=== PATIENT | male | born 1975 | race Two or more races ===

== ENCOUNTER 2017-03-31 12:01 | Emergency (ER) | payer OTHER ==
[~2017-03-31] VITALS: Ht 175.3 cm; Wt 122.5 kg
[2017-03-31 12:51] LABS: Basophils # (auto) 0 uL; Basophils % (auto) 0.4 % (0.0-2.0); CONDITION Y; Eosinophils # (auto) 0.1 uL; Eosinophils % (auto) 0.7 % (0.0-7.0); Hematocrit 42.8 % (41.0-53.0); Hemoglobin 14.6 g/dL (13.5-17.5); Lymphocytes # (auto) 2.4 uL; Lymphocytes % (auto) 20.9 % (10.0-50.0); Mean Corpuscular Hemoglobin 29.9 pg (28.0-32.0); Mean Corpuscular Hgb Conc. 34.1 g/dL (32.0-36.0); Mean Corpuscular Volume 87.5 fL (80.0-100.0); Mean Platelet Volume 9.4 fL (6.9-10.8); Monocytes # (auto) 0.5 uL; Monocytes % (auto) 4.4 % (0.0-12.0); Neutrophils # (auto) 8.5 uL; Neutrophils % (auto) 73.6 % (37.0-80.0); Platelet Count (auto) 280 10^3/uL (140-450); White Blood Cell 11.6 10^3/uL (4.4-10.8)
[2017-03-31 13:34] LABS: Albumin 3.5 g/dL (3.4-5.0); Bilirubin, Total 0.3 mg/dL (0.2-1.0); Calcium 9.1 mg/dL (8.5-10.1); Potassium 4.2 mmol/L (3.5-5.1); Total Protein 8.1 g/dL (6.4-8.2)
[2017-03-31 14:05] LABS: Urine RBC None Seen /hpf (0 - 3)
[2017-03-31] MEDS ORDERED: SODIUM CHLORIDE 0.9% 1,000 ML IV ONE (14:45)
[2017-03-31 16:11] LABS: Urine Bilirubin Negative (Negative); Urine Blood Negative /uL (Negative); Urine Color Yellow (Yellow); Urine Glucose 2+ mg/dL (Normal); Urine Ketone TRACE (Negative); Urine Mucus FEW (None Seen); Urine Nitrite Negative (Negative); Urine Squamous Epithelial Cell FEW /hpf (<5); Urine Urobilinogen Normal (Negative)
[2017-03-31 17:49] VITALS: BP 114/69
== END 2017-03-31 18:46 | disposition home or self-care (01) ==
LOC: ER 12:01
DX: E11.65 Type 2 diabetes mellitus with hyperglycemia (principal); G47.30 Sleep apnea, unspecified; Z87.891 Personal history of nicotine dependence
CPT/HCPCS: 36415; 80053; 81001; 85025; 94761; 96360; 96361; 99285; J7030

== ENCOUNTER 2025-07-10 09:31 | Inpatient (IN) | payer BC, OTHER ==
[~2025-07-10] VITALS: Ht 175.3 cm; Wt 150.4 kg
--- NOTE | 2025-07-10 10:05 | ED.PDOC ---
History of Present Illness(SKN HPI Comments 50 y/o M, BIBA, with PMHx of DM presents to the ED for CC of wound check. EMS reports, patient is coming from home where he c/o pain to his right suprapubic area d/t a wound. Patient relays, he was exiting his vehicle x5days ago when he suffered a "tear" to his right suprapubic area that has now become swollen and erythematous. Patient has a notable 3cm subcutaneous wound to his right suprapubic area. Patient denies fever, chills, or sweats. Time Seen by MD: 09:50 Primary Care Provider: DR OMALLEY History of Present Illness: Nurses Notes, Clinical Engineer Notes, Medications, Allergies Allergies: Coded Allergies: NO KNOWN ALLERGIES (Unverified , 03/31/17) Information Source: Patient, Emergency Med Personnel Mode of Arrival: EMS Severity: Moderate Timing: Days Duration: Since onset Prehospital treatment: None Location: Abdomen Mechanism: Spontaneous Onset Retained Foreign Body: No Wound Type: Abscess History of: None Associated Signs and Symptoms: Redness, Swelling, Pus Past Medical History PAST MEDICAL HISTORY: DM Surgical History: Denies all surgeries Social History Smoker: Non-Smoker, Quit Less Than 1 Year Alcohol: Occasionally Drugs: Denies Drug Use Lives In: Home Constitutional: denies: chills, diaphoresis, fatigue, fever, malaise, sweats, weakness, others EENTM: denies: blurred vision, double vision, ear bleeding, ear discharge, ear drainage, ear pain, ear ringing, eye pain, eye redness, hearing loss, mouth pain, mouth swelling, nasal discharge, nose bleeding, nose congestion, nose pain, photophobia, tearing, throat pain, throat swelling, voice changes, others Respiratory: denies: cough, hemoptysis, orthopnea, SOB at rest, shortness of breath, SOB with excertion, stridor, wheezing, others Cardiovascular: denies: chest pain, dizzy spells, diaphoresis, Dyspnea on exertion, edema, irregular heart beat, left arm pain, lightheadedness, palpitations, PND, syncope, others Gastrointestinal: denies: abdomen distended, abdominal pain, blood streaked bowels, constipated, diarrhea, dysphagia, difficulty swallowing, hematemesis, melena, nausea, poor appetite, poor fluid intake, rectal bleeding, rectal pain, vomiting, others Genitourinary: denies: burning, dysuria, flank pain, frequency, hematuria, incontinence, penile discharge, penile sore, pain, testicle pain, testicle swelling, urgency, others Neurological: denies: dizziness, fainting, headache, left sided numbness, left sided weakness, numbness, paresthesia, pre-existing deficit, right sided numbness, right sided weakness, seizure, speech problems, tingling, tremors, weakness, others Musculoskeletal: denies: back pain, gout, joint pain, joint swelling, muscle pain, muscle stiffness, neck pain, others Integumetry: reports: wounds; denies: bruises, change in color, change in hair/nails, dryness, laceration, lesions, lumps, rash, others Allergic/Immunocompromised: denies: Difficulty Healing, Frequent Infections, Hives, Itching, others Hematologic/Lymphatic: denies: anemia, blood clots, easy bleeding, easy bruising, swollen glands, others Endocrine: denies: excessive hunger, excessive sweating, excessive thirst, excessive urination, flushing, intolerance to cold, intolerance to heat, unexplained weight gain, unexplained weight loss, others Psychiatric: denies: anxiety, bipolar disorder, depression, hopeless, panic disorder, schizophrenia, sleepless, suicidal, others All Other Systems: Reviewed and Negative Physical Exam General Appearance: Moderate Distress, Obese HEENT: Normal ENT Inspection, Pharynx Normal, TMs Normal Neck: Full Range of Motion, Non-Tender, Normal, Normal Inspection Respiratory: Chest Non-Tender, Lungs Clear, No Accessory Muscle Use, No Respiratory Distress, Normal Breath Sounds Cardiovascular: No Edema, No JVD, No Murmur, No Gallop, Normal Peripheral Pulses, Regular Rate/Rhythm Breast Exam: Deferred Gastrointestinal: No Organomegaly, Non Tender, No Pulsatile Mass, Normal Bowel Sounds, Soft Genitalia: Deferred Pelvic: Deferred Rectal: Deferred Extremities: No calf tenderness, Normal capillary refill, Normal inspection, Normal range of motion, Non-tender, No pedal edema Musculoskeletal : Apperance: Normal Neurologic: Alert, manufacturing design engineer II-XII nml as Tested, No Motor Deficits, Normal Affect, Normal Mood, No Sensory Deficits Cerebellar Function: Normal Reflexes: Normal Skin: Wounds (Right lower quadrant) Peripheral Pulses: 3+ Radial (R), 3+ Radial (L) Lymphatic: No Adenopathy Was a procedure done? Was a procedure done?: No Differential Diagnosis (INTG) Differential Diagnosis: Cellulitis Differential Diagnosis: Abscess, Cellulitis X-Ray, Labs, Meds, VS Vital Signs Date Time Temp Pulse Resp B/P (MAP) Pulse Ox O2 Delivery O2 Flow Rate FiO2 07/10/25 10:56 97.6 111 18 109/66 (80) 97.6 07/10/25 10:14 98.7 104 15 132/91 98 98.7 Lab Test 07/10/25 10:09 Range/Units White Blood Count 7.8 4.4-10.8 10^3/uL Red Blood Count 4.86 4.5-5.90 10^6/uL Hemoglobin 14.4 13.5-17.5 g/dL Hematocrit 41.7 41.0-53.0 % Mean Corpuscular Volume 85.9 80.0-100.0 fL Mean Corpuscular Hemoglobin 29.6 28.0-32.0 pg Mean Corpuscular Hemoglobin Concent 34.5 32.0-36.0 g/dL Red Cell Distribution Width 14.4 H 11.8-14.3 % Platelet Count 270 140-450 10^3/uL Mean Platelet Volume 9.7 6.9-10.8 fL Neutrophils (%) (Auto) 75.1 37.0-80.0 % Lymphocytes (%) (Auto) 16.6 10.0-50.0 % Monocytes (%) (Auto) 7.3 0.0-12.0 % Eosinophils (%) (Auto) 0.5 0.0-7.0 % Basophils (%) (Auto) 0.5 0.0-2.0 % Neutrophils # (Auto) 5.9 1.6-8.6 10 ^3/uL Lymphocytes # (Auto) 1.3 0.4-5.4 10 ^3/uL Monocytes # (Auto) 0.6 0-1.3 10 ^3/uL Eosinophils # (Auto) 0 0-0.8 10 ^3/uL Basophils # (Auto) 0 0-0.2 10 ^3/uL Nucleated Red Blood Cells 0.1 % Sodium Level 130 L 136-145 mmol/L Potassium Level 4.0 3.5-5.1 mmol/L Chloride Level 98 98-107 mmol/L Carbon Dioxide Level 23 20-31 mmol/L Anion Gap 9 5-15 Blood Urea Nitrogen 7 L 9-23 mg/dL Creatinine 0.87 0.700-1.30 mg/dL Glomerular Filtration Rate Calc 105 >90 mL/min BUN/Creatinine Ratio 8.0 L 10.0-20.0 Serum Glucose 302 H 74-106 mg/dL Lactic Acid Level 1.9 0.4-2.0 mmol/L Calcium Level 8.7 8.7-10.4 mg/dL Current Medications Medications (Trade) Dose Ordered Sig/Binu Route Start Time Stop Time Status Last Admin Sodium Chloride 1,000 ml @ 1,000 mls/hr Q1H ONCE IV 07/10/25 10:00 07/10/25 10:59 DC 07/10/25 11:22 Piperacillin Sod/ Tazobactam Sod 100 ml @ 100 mls/hr ONCE ONCE IV 07/10/25 10:00 07/10/25 10:59 DC 07/10/25 11:47 Clindamycin Phosphate 50 ml @ 50 mls/hr ONCE ONCE IV 07/10/25 10:00 07/10/25 10:59 DC 07/10/25 11:22 [place] [id number] Ph: [phone] DIAGNOSTIC IMAGING Diagnostic Imaging Report : [id number] Signed PATIENT: LISSETH TURNER ACCT: [id number] UNIT: [id number] : 1975 LOC: ER ROOM / BED: / AGE / SEX: 50 / M ADM STATUS: REG ER SERVICE 0958 ORDERING PHYSICIAN: ROSALES GOODMAN MD PROCEDURE(s): CXRP - CHEST PORTABLE REASON: sob ORDER NUMBER(s): [id number], ACCESSION NUMBER(s): [id number] CLINICAL HISTORY: sob TECHNIQUE: Single view of the chest was obtained. COMPARISON: None FINDINGS: The heart size and pulmonary vasculature are normal. The lungs are clear. IMPRESSION: NO ACUTE CARDIOPULMONARY PROCESS. ATED BY: MILAGRO CEBALLOS MD DICTATED DATE/TIME: 07/10/25 1044 SIGNED BY: MILAGRO CEBALLOS MD SIGNED DATE/TIME: 07/10/25 1044 CC: Patient alert. Does have a wound in the right lower quadrant. Being pannus. Vitals stable. Answering questions. Chest x-ray reviewed does not show any acute changes. Does have redness along with swelling. Started antibiotics. Explained to the patient. Was told to follow up with his primary care physician. Was told to come back if there is any problem. Time of 1ST Reevaluation: 10:20 Reevaluation 1ST: Unchanged Patient Education/Counseling: Diagnosis, Treatment Family Education/Counseling: No Family Present SEPSIS Sepsis Screen Physician Orders Chest Portable (07/10/25 09:58) Urinalysis (07/10/25 09:58) Sodium Chloride 0.9% (07/10/25 10:00) Blood Culture (07/10/25 09:58) Vital Signs Date Time Temp Pulse Resp B/P (MAP) Pulse Ox O2 Delivery O2 Flow Rate FiO2 07/10/25 10:56 97.6 111 18 109/66 (80) 97.6 07/10/25 10:14 98.7 104 15 132/91 98 98.7 Laboratory Tests Test 07/10/25 10:09 Lactic Acid Level 1.9 mmol/L (0.4-2.0) White Blood Count 7.8 10^3/uL (4.4-10.8) Medications Medications Dose Ordered Sig/Binu Route Start Time Stop Time Status Last Admin Dose Admin Clindamycin Phosphate 50 ml @ 50 mls/hr ONCE ONCE IV 07/10/25 10:00 07/10/25 10:59 DC 07/10/25 11:22 Piperacillin Sod/ Tazobactam Sod 100 ml @ 100 mls/hr ONCE ONCE IV 07/10/25 10:00 07/10/25 10:59 DC 07/10/25 11:47 Sodium Chloride 1,000 ml @ 1,000 mls/hr Q1H ONCE IV 07/10/25 10:00 07/10/25 10:59 DC 07/10/25 11:22 Departure 1 Departure Time of Disposition: 12:44 Impression: Primary Impression: Cellulitis Qualified Codes: L03.90 - Cellulitis, unspecified Disposition: 09 ADMITTED INPATIENT Admit to: Med Surg Condition: Guarded Critical Care Note Critical Care Time?: No Stability Stability form required: No Heart Score Heart Score: Heart Score Response (Comments) Value History N/A 0 EKG N/A 0 Age N/A 0 Risk Factors N/A 0 Troponin N/A 0 Total 0 I personally scribed for ROSALES GOODMAN MD ([email or web address]) on 07/10/25 at 10:05. Electronically submitted by Damaris Cronin [email or web address]). I personally scribed for ROSALES GOODMAN MD ([email or web address]) on 07/10/25 at 12:12. Electronically submitted by Damaris Cronin [email or web address]). ROSALES GOODMAN MD Jul 10, 2025 10:05
[2025-07-10 10:32] LABS: Hematocrit 41.7 % (41.0-53.0); Hemoglobin 14.4 g/dL (13.5-17.5); Mean Corpuscular Hemoglobin 29.6 pg (28.0-32.0); Mean Corpuscular Volume 85.9 fL (80.0-100.0); Nucleated Red Blood Cells % 0.1 %
[2025-07-10 10:42] LABS: Chloride 98 mmol/L (98-107); Potassium 4.0 mmol/L (3.5-5.1)
[2025-07-10 10:43] LABS: Anion Gap 9 (5-15); Calcium 8.7 mg/dL (8.7-10.4); Carbon Dioxide 23 mmol/L (20-31)
[2025-07-10 10:47] LABS: Sodium 130 mmol/L (136-145)
--- NOTE | 2025-07-10 10:47 | DVH ---
CLINICAL HISTORY: sob TECHNIQUE: Single view of the chest was obtained. COMPARISON: None FINDINGS: The heart size and pulmonary vasculature are normal. The lungs are clear. IMPRESSION: NO ACUTE CARDIOPULMONARY PROCESS.
[2025-07-10 10:48] LABS: BUN/Creatinine Ratio 8.0 (10.0-20.0); Blood Urea Nitrogen 7 mg/dL (9-23); Glucose 302 mg/dL (74-106)
[2025-07-10] MEDS: SODIUM CHLORIDE 0.9% 1,000 ML IV ONE ×2 (11:22→11:50)
[2025-07-10] MEDS: CLINDAMYCIN 900MG IV 50 ML IV ONE (11:22)
[2025-07-10] MEDS: PIPERACILLIN-TAZOB 3.375GM 100 ML IV ONE (11:47)
[2025-07-10] MEDS ORDERED: LISI20TA56 PO (13:11)
[2025-07-10] MEDS ORDERED: HYDROcodone-ACET 5/325MG TAB PO PRN (13:15)
[2025-07-10] MEDS ORDERED: DEXTROSE (50%) 50ML SYRG IV PRN (13:15)
[2025-07-10] MEDS ORDERED: ACETAMINOPHEN 325 MG TAB PO PRN (13:15)
[2025-07-10] MEDS ORDERED: ONDANSETRON HCL 4 MG/2 ML VIAL IV PRN (13:15)
[2025-07-10] MEDS ORDERED: MORPHINE SULFATE 4 MG/ML SYR/VIAL IV PRN (13:45)
--- NOTE | 2025-07-10 13:53 | DVHHP2 ---
History of Present Illness Reason for Visit: Wound check History of Present Illness A 50 year old male with past medical history of type 2 diabetes, hypertension, morbid obesity, ex-smoker presents to the ED for wound check. Reports an open wound on right lower quadrant abdomen for five days after tearing skin while exiting vehicle. Since then we will wound has become swollen, erythematous with purulent drainage and foul odor. Denies fever or chills. Past Medical History As stated in HPI Past Surgical History Denies Family History Reviewed, non-contributory to the management of this case. Past Social History The patient lives at home, denies smoking, alcohol or illicit drugs abuse. Review of Systems Constitutional: Yes: Malaise; No: Fever, Chills, Sweats, Weakness, Other Eyes: No: Pain, Vision change, Conjunctivae inflammation, Eyelid inflammation, Other, Redness ENT: No: Ear pain, Ear discharge, Nose pain, Nose discharge, Nose congestion, Mouth pain, Mouth swelling, Throat pain, Throat swelling, Other Respiratory: No: Cough, Dry, Shortness of breath, SOB with excertion, Wheezing, Hemoptysis, Pleuritic Pain, Sputum, Wheezing, Other Cardiovascular: No: Chest Pain, Palpitations, Orthopnea, Paroxysmal Noc. Dyspnea, Edema, Lt Headedness, Other Gastrointestinal: No: Nausea, Vomiting, Abdominal Pain, Diarrhea, Constipation, Melena, Hematochezia, Other Genitourinary: No Dysuria, No Frequency, No Incontinence, No Hematuria, No Retention, No Other Musculoskeletal: No: other, neck pain, shoulder pain, arm pain, back pain, hand pain, leg pain, foot pain Skin: Other (Open wound on right lower abdomen) Neurological: No: Weakness, Numbness, Incoordination, Change in speech, Confusion, Seizures, Other Allergies: Coded Allergies: NO KNOWN ALLERGIES (Unverified , 03/31/17) Exam Vital Signs Vital Signs Date Time Temp Pulse Resp B/P (MAP) Pulse Ox O2 Delivery O2 Flow Rate FiO2 07/10/25 13:10 97.6 102 17 112/66 (81) 97 97.6 General Appearance: Alert, Oriented X3, Cooperative, mild distress HEENT: Atraumatic, PERRLA, EOMI Respiratory: Clear to auscultation, Normal air movement Cardiovascular: Regular rate, Normal S1, Normal S2 Abdominal: Normal bowel sounds, Soft, Other (Right lower abdomen open wound approximately 3-4 cm with purulent drainage and foul odor) Neuro: Normal gait Psych/Mental Status: Mental status NL Labs/Xrays Labs Test 07/10/25 10:09 Range/Units White Blood Count 7.8 4.4-10.8 10^3/uL Red Blood Count 4.86 4.5-5.90 10^6/uL Hemoglobin 14.4 13.5-17.5 g/dL Hematocrit 41.7 41.0-53.0 % Mean Corpuscular Volume 85.9 80.0-100.0 fL Mean Corpuscular Hemoglobin 29.6 28.0-32.0 pg Mean Corpuscular Hemoglobin Concent 34.5 32.0-36.0 g/dL Red Cell Distribution Width 14.4 H 11.8-14.3 % Platelet Count 270 140-450 10^3/uL Mean Platelet Volume 9.7 6.9-10.8 fL Neutrophils (%) (Auto) 75.1 37.0-80.0 % Lymphocytes (%) (Auto) 16.6 10.0-50.0 % Monocytes (%) (Auto) 7.3 0.0-12.0 % Eosinophils (%) (Auto) 0.5 0.0-7.0 % Basophils (%) (Auto) 0.5 0.0-2.0 % Neutrophils # (Auto) 5.9 1.6-8.6 10 ^3/uL Lymphocytes # (Auto) 1.3 0.4-5.4 10 ^3/uL Monocytes # (Auto) 0.6 0-1.3 10 ^3/uL Eosinophils # (Auto) 0 0-0.8 10 ^3/uL Basophils # (Auto) 0 0-0.2 10 ^3/uL Nucleated Red Blood Cells 0.1 % Sodium Level 130 L 136-145 mmol/L Potassium Level 4.0 3.5-5.1 mmol/L Chloride Level 98 98-107 mmol/L Carbon Dioxide Level 23 20-31 mmol/L Anion Gap 9 5-15 Blood Urea Nitrogen 7 L 9-23 mg/dL Creatinine 0.87 0.700-1.30 mg/dL Glomerular Filtration Rate Calc 105 >90 mL/min BUN/Creatinine Ratio 8.0 L 10.0-20.0 Serum Glucose 302 H 74-106 mg/dL Lactic Acid Level 1.9 0.4-2.0 mmol/L Calcium Level 8.7 8.7-10.4 mg/dL SEPSIS Sepsis Screen Date sepsis recognized/suspect: Jul 10, 2025 Time Sepsis recognized/suspect: 941 Recent Procedure: No On Antibiotic Therapy: No Respiratory Rate >20: No Heart Rate >90: No Temp<36 C (96.8 F) or >38.3 C: No SBP <90 or MAP <65 mmHG: No New Acute Mental Status Change: No Is the patient on CPAP, BIPAP,: No Physician Orders Chest Portable (07/10/25 09:58) Urinalysis (07/10/25 09:58) Sodium Chloride 0.9% (07/10/25 10:00) Blood Culture (07/10/25 09:58) * Wound Consult (07/10/25 ) Clindamycin 300mg Iv (Cleocin Iv) (07/10/25 14:00) Piperacillin-Tazob 3.375gm (Zosyn 3.375g (07/10/25 18:00) Wound Culture W/ Gs (07/10/25 13:11) Glucose Blood (Accu-Chek Comfort Curve T (07/10/25 17:00) Insulin R (Human) (Insulin R) (07/10/25 17:00) Dextrose 50% Syringe (07/10/25 13:15) Lisinopril Tablet (Zestril Tablet) (07/11/25 10:00) Vital Signs Date Time Temp Pulse Resp B/P (MAP) Pulse Ox O2 Delivery O2 Flow Rate FiO2 07/10/25 13:10 97.6 102 17 112/66 (81) 97 97.6 07/10/25 10:56 97.6 111 18 109/66 (80) 97.6 07/10/25 10:14 98.7 104 15 132/91 98 98.7 Laboratory Tests Test 07/10/25 10:09 Lactic Acid Level 1.9 mmol/L (0.4-2.0) White Blood Count 7.8 10^3/uL (4.4-10.8) Medications Medications Dose Ordered Sig/Binu Route Start Time Stop Time Status Last Admin Dose Admin Clindamycin Phosphate 50 ml @ 50 mls/hr ONCE ONCE IV 07/10/25 10:00 07/10/25 10:59 DC 07/10/25 11:22 50 MLS/HR Piperacillin Sod/ Tazobactam Sod 100 ml @ 100 mls/hr ONCE ONCE IV 07/10/25 10:00 07/10/25 10:59 DC 07/10/25 11:47 100 MLS/HR Sodium Chloride 1,000 ml @ 1,000 mls/hr Q1H ONCE IV 07/10/25 10:00 07/10/25 10:59 DC 07/10/25 11:22 1,000 MLS/HR Assessment/Plan Assessment/Plan # Right lower abdominal cellulitis/abscess # infected open wound Admit to medical-surgical unit Empiric antibiotic with Zosyn and clindamycin Blood and wound culture Wound consult # diabetes type 2 Insulin sliding scale Check A1c # hypertension Continue with lisinopril Dash diet # morbid obesity with bmi 52 Lifestyle modification counseled with diet, regular exercise, and weight loss # ex-smoker DVT prophylaxis Medical plan discussed with patient Plan discussed with: Patient My Orders Orders - QUAN MEREDITHP Procedure Category Date Status Time * Wound Consult CONS 07/10/25 Transmitted Clindamycin 300mg Iv PHA 07/10/25 Logged (Cleocin Iv) 14:00 Piperacillin-Tazob PHA 07/10/25 Logged 3.375gm (Zosyn 3.375g 18:00 Wound Culture W/ Gs HUGO 07/10/25 Logged 13:11 Glucose Blood PHA 07/10/25 Logged (Accu-Chek Comfort 17:00 Insulin R (Human) PHA 07/10/25 Logged (Insulin R) 17:00 Dextrose 50% Syringe PHA 07/10/25 Logged 13:15 Lisinopril Tablet PHA 07/11/25 Logged (Zestril Tablet) 10:00 Date of Service: Jul 10, 2025 Billing Provider: QUAN MEREDITH Common Visit Codes: [id number] INP/OBS CARE (HIGH) QUAN MEREDITH Jul 10, 2025 13:53
[2025-07-10 15:09] VITALS: BP 117/68; PULSE 95; RESP 18; TEMP 97.9; O2SAT 100
[2025-07-10] MEDS ORDERED: METF-370 PO (16:00)
[2025-07-10] MEDS: ACCU-CHEK COMFORT CURVE STRIP VI SCH (17:07)
[2025-07-10] MEDS: InsuLIN REG 1unit/0.01ml Soln (100units/ml) SC SCH (17:07)
[2025-07-10] MEDS: PIPERACILLIN-TAZOB 3.375GM 100 ML IV SCH (17:46)
[2025-07-10 20:00] VITALS: PULSE 104; RESP 18; O2SAT 100
[2025-07-10 21:00] VITALS: BP 108/72; PULSE 104; RESP 18; TEMP 98.6; O2SAT 100
[2025-07-10] MEDS: CLINDAMYCIN 300MG IV 50 ML IV SCH (22:06)
[2025-07-10 23:51] LABS: Urine Budding Yeast MODERATE /hpf (None Seen); Urine Protein, UAD 1+ (Negative)
[2025-07-11] VITALS (8 sets, daily range): BP systolic 96–110; BP diastolic 60–76; PULSE 72–106; RESP 16–19; TEMP 97.6–99; O2SAT 95–100
[2025-07-11 05:52] LABS: Hematocrit 36.4 % (41.0-53.0); Hemoglobin 12.5 g/dL (13.5-17.5); Mean Corpuscular Hemoglobin 29.4 pg (28.0-32.0); Mean Corpuscular Volume 85.6 fL (80.0-100.0); Nucleated Red Blood Cells % 0.0 %
[2025-07-11 06:17] LABS: Albumin 3.2 g/dL (3.2-4.8); Alkaline Phosphatase 73 U/L (46-116); Anion Gap 9 (5-15); BUN/Creatinine Ratio 15.5 (10.0-20.0); Blood Urea Nitrogen 11 mg/dL (9-23); Carbon Dioxide 24 mmol/L (20-31); Chloride 99 mmol/L (98-107); Potassium 3.7 mmol/L (3.5-5.1); Total Protein 6.3 g/dL (5.7-8.2)
[2025-07-11 06:18] LABS: Alanine Aminotransferase 40 U/L (7-40); Bilirubin, Total 0.5 mg/dL (0.2-1.0); Calcium 8.0 mg/dL (8.7-10.4); Glucose 263 mg/dL (74-106); Sodium 132 mmol/L (136-145)
[2025-07-11] MEDS: ENOXAPARIN SOD 40 MG/0.4 ML SYRINGE SC SCH (09:17)
[2025-07-11] MEDS: LISINOPRIL 20 MG TAB PO SCH (09:21)
[2025-07-11] MEDS ORDERED: VANCOMYCIN PER PHARMACY 0 MG IV SCH (11:30)
[2025-07-11] MEDS: IOHEXOL 300 MG/ML 100ML BOTTLE IJ ONE (12:15)
[2025-07-11] MEDS: LACTATED RINGER'S 500 ML IV ONE (12:58)
[2025-07-11] MEDS: LACTATED RINGER'S 1,000 ML IV SCH (13:11)
[2025-07-11] MEDS: VANCOMYCIN 1GM/250ML KIT 250 ML IV SCH (13:15)
[2025-07-11] MEDS: INSULIN LANTUS (GLARGINE) 1 /0.01ml (100units/ml) SC ONE (13:27)
--- NOTE | 2025-07-11 14:06 | DVH ---
EXAM: CT CT AB PELVIS W WO CON-IV ONLY History: abdominal superficial collection vs underlying mass COMPARISON: None TECHNIQUE: Following IV administration of 100 mL omnipaque [address] of the abdomen and pelvis was performed from lung bases to pubic symphysis. Intravenous contrast was administered during this examination. Portal venous imaging was obtained. Axial, coronal and sagittal multiplanar reformats were performed by the technologist on a separate workstation. Radiation Dose : 1. Abdomen/Pelvis: CTDIvol 25.6mGy, DLP 3022.58 mGy*cm. FINDINGS: Lung Bases: No acute or significant lung base finding. Normal heart size. No pleural or pericardial effusion. Liver: The liver is normal in size. No focal lesions. Normal hepatic vascular enhancement. Gallbladder and Biliary Tree: Unremarkable Spleen: Unremarkable Pancreas: The pancreas is normal in appearance without focal lesions or abnormal enhancement. Adrenal Glands: Unremarkable Kidneys: No hydronephrosis. Bladder: Unremarkable Bowel: The stomach is grossly normal in appearance. Small bowel and colon are normal in caliber and distribution. The appendix is not visualized; however, no secondary findings of acute appendicitis identified. Ascites: Absent Lymphadenopathy: No mesenteric, retroperitoneal or periportal lymphadenopathy. Abdominal Wall and Mesentery: Slight swelling of the lower right lateral chest wall. Vasculature: The visualized abdominal aorta is normal in size and caliber. Abdominal and pelvic vessels demonstrate normal enhancement. Pelvic Organs: Unremarkable Musculoskeletal: No aggressive focal bony lesions, acute fractures or dislocation. IMPRESSION: 1. No acute abdominal or pelvic finding. Radiation optimization: All CT scans at this facility use at least one of these dose optimization techniques: automated exposure control mA and/or kV adjustment per patient size (includes targeted exams where dose is matched to clinical indication) or iterative reconstruction.
--- NOTE | 2025-07-11 15:10 | DVHPNRES ---
Progress Note Date Seen: Jul 11, 2025 Resident Creating Document: JEANNETTE GREGORIO RESIDENT Medical Necessity Reason Pt with a Central, PICC or Fol: No Subjective Review of Systems 07/11/2025: Patient was seen and examined by me at the bedside. Patient has no new complaints. He denies of any pain in the abdominal wound region. Objective vital signs Vital Sign Date Time Temp Pulse Resp B/P (MAP) Pulse Ox O2 Delivery O2 Flow Rate FiO2 07/11/25 13:00 98.5 106 19 106/62 (77) 99 98.5 07/11/25 08:00 Room Air* 0 21 Total Intake and Output 07/10/25 07/10/25 07/11/25 15:00 23:00 07:00 Intake Total 1150 ml 100 ml 500 ml Output Total 0 ml Balance 1150 ml 100 ml 500 ml medications Current Medications Medications Dose Ordered Sig/Binu Route Start Time Stop Time Status Last Admin Dose Admin Diagnostic Test (Pha) 1 strip ACHS 07/10/25 17:00 07/11/25 11:02 1 STRIP Insulin Human Regular ACHS SC 07/10/25 17:00 07/11/25 11:09 8 UNITS Dextrose 50 ml UD PRN IV 07/10/25 13:15 Acetaminophen/ Hydrocodone Bitart 1 tab Q4HP PRN PO 07/10/25 13:15 Ondansetron HCl 4 mg Q4HP PRN IV 07/10/25 13:15 Enoxaparin Sodium 40 mg DAILY SC 07/11/25 10:00 07/11/25 09:17 40 MG Acetaminophen 650 mg Q6HP PRN PO 07/10/25 13:15 Morphine Sulfate 2 mg Q4HPRN PRN IV 07/10/25 13:45 Cefepime HCl 50 ml @ 12.5 mls/hr Q8H IV 07/11/25 13:00 Vancomycin HCl 0 ml @ 0 mls/hr PER PHARMACY IV 07/11/25 11:30 Insulin Glargine 20 units HS SC 07/11/25 22:00 Lactated Ringer's 1,000 ml @ 100 mls/hr Q10H IV 07/11/25 11:45 07/11/25 13:11 100 MLS/HR Examination General Appearance: Alert, Oriented X3, Cooperative, Not in acute distress HEENT: Atraumatic, Mucous membranes moist/pink Respiratory: Clear to auscultation, Normal air movement, No added sounds Cardiovascular: Regular rate, Normal S1, Normal S2, No murmurs Abdominal: Active bowel sounds, Soft, 1 cm superficial skin wound, draining purulent pus /blood, foul-smelling, erythema of the surrounding skin, warm to touch Extremities: No edema, Normal pulses, No tenderness/swelling Skin: No Significant rash, except past surgical scars Neuro: Normal speech, sensorimotor deficits none Psych/Mental Status: Mental status NL, Mood NL Nurse was there as companion caregiver during examination laboratory and microbiology Laboratory Tests 07/11/25 05:08 Test 07/11/25 05:08 Range/Units Serum Glucose 263 H 74-106 mg/dL Microbiology Date/Time Source Procedure Growth Status 07/10/25 10:17 Blood Blood Culture - Preliminary NO GROWTH AFTER 24 HOURS OF INCUBATION. Resulted Labs and/or images reviewed: Labs reviewed by me, Image(s) reviewed by me Problem List/Assessment/Plan Problem List/Assessment/Plan Cabrera Martinez 50-year-old male with type 2 diabetes, hypertension, and morbid obesity presents for wound check after developing a foul-smelling, purulent, erythematous open wound on the right lower abdomen for 5 days following a skin tear while exiting a vehicle, with reports of chills for the past few days. # Abdominal Superficial abdominal and skin ulceration, ruled out abscess # Right lower abdominal cellulitis # Infected open wound -Vanc and cefepime day 1 -Blood prelim neg and wound culture -Wound consult -CT abdomen and pelvis No acute abdominal or pelvic finding. #intertrigo -nystatin powder in bilateral groin region #Diabetes type 2 with hyperglycemia, uncontrolled -Insulin sliding scale -Insulin lantus 20units HS -A1c 13.6 -diabetic education referral #Hypertensive heart disease, possibly due to diastolic dysfunction -Held as BP low -Dash diet # Morbid obesity, bmi 52kg/m2 Lifestyle modification counseled with diet, regular exercise, and weight loss # ex-smoker -Counseled on continued cessation >11 minutes DVT prophylaxis: Lovenox Diet: diabetic and cardiac diet Goals of care discussed with the patient for more than 27 minutes: Full code status Case discussed with Dr. Tucker, patient and nurse. Plan discussed with: Patient, Other (rn) My Orders My Orders Orders - JEANNETTE GREGORIO RESIDENT Procedure Category Date Status Time Stool Occult Blood LAB 07/11/25 Logged 10:09 Consistent DIET 07/11/25 [facility]mitted [facility]Diabetes Lunch Visit Coding STANDARD RES Billing Provider: ROBB TUCKER MD Date of Service if different f: Jul 11, 2025 Common Visit Codes: [id number] INP/OBS CARE(HIGH) JEANNETTE GREGORIO RESIDENT Jul 11, 2025 15:10
[2025-07-11] MEDS: CEFEPIME 2GM/50ML NS 50 ML IV SCH (16:40)
[2025-07-11] MEDS ORDERED: DEXTROSE (50%) 50ML SYRG IV PRN (19:00)
[2025-07-11] MEDS: NYSTATIN TOPICAL POWDER 15GM TOP SCH (20:51)
[2025-07-11] MEDS: ACCU-CHEK COMFORT CURVE STRIP VI SCH (20:51)
[2025-07-11] MEDS: InsuLIN REG 1unit/0.01ml Soln (100units/ml) SC SCH (21:07)
[2025-07-11] MEDS: INSULIN LANTUS (GLARGINE) 1 /0.01ml (100units/ml) SC SCH (21:10)
[2025-07-12] VITALS (8 sets, daily range): BP systolic 74–107; BP diastolic 31–72; PULSE 93–133; RESP 16–19; TEMP 36.7; O2SAT 96–97
[2025-07-12] MEDS: SODIUM CHLORIDE 0.9% 1,000 ML IV ONE (05:18)
[2025-07-12 05:21] LABS: Hematocrit 36.3 % (41.0-53.0); Hemoglobin 12.6 g/dL (13.5-17.5); Mean Corpuscular Hemoglobin 29.5 pg (28.0-32.0); Mean Corpuscular Volume 85.1 fL (80.0-100.0); Nucleated Red Blood Cells % 0.1 %
[2025-07-12 05:29] LABS: Anion Gap 9 (5-15); Carbon Dioxide 25 mmol/L (20-31); Chloride 102 mmol/L (98-107); Potassium 3.9 mmol/L (3.5-5.1)
[2025-07-12 05:32] LABS: Calcium 8.3 mg/dL (8.7-10.4); Sodium 136 mmol/L (136-145)
[2025-07-12 05:35] LABS: BUN/Creatinine Ratio 9.6 (10.0-20.0)
[2025-07-12 05:39] LABS: Blood Urea Nitrogen 7 mg/dL (9-23); Glucose 226 mg/dL (74-106)
[2025-07-12] MEDS: InsuLIN REG 1unit/0.01ml Soln (100units/ml) SC SCH (06:27)
[2025-07-12] MEDS: VANCOMYCIN 1.75GM/350ML 350 ML IV SCH (11:34)
--- NOTE | 2025-07-12 16:59 | DVHDSRES ---
Discharge Summary Date of Admission Resident Creating Document: MARCIA HINOJOSA RESIDENT Jul 10, 2025 at 13:15 Date of Discharge: Jul 12, 2025 Admitting Diagnosis Abdominal wound. Labs/Diagnostic Data: Laboratory Results Test 07/12/25 10:46 07/12/25 05:02 07/11/25 16:47 07/11/25 05:08 POC Glucose 254 mg/dl (70-106) White Blood Count 7.3 10^3/uL (4.4-10.8) Red Blood Count 4.26 10^6/uL (4.5-5.90) Hemoglobin 12.6 g/dL (13.5-17.5) Hematocrit 36.3 % (41.0-53.0) Mean Corpuscular Volume 85.1 fL (80.0-100.0) Mean Corpuscular Hemoglobin 29.5 pg (28.0-32.0) Mean Corpuscular Hemoglobin Concent 34.6 g/dL (32.0-36.0) Red Cell Distribution Width 14.6 % (11.8-14.3) Platelet Count 399 10^3/uL (140-450) Mean Platelet Volume 8.5 fL (6.9-10.8) Neutrophils (%) (Auto) 65.4 % (37.0-80.0) Lymphocytes (%) (Auto) 21.4 % (10.0-50.0) Monocytes (%) (Auto) 11.2 % (0.0-12.0) Eosinophils (%) (Auto) 1.3 % (0.0-7.0) Basophils (%) (Auto) 0.7 % (0.0-2.0) Neutrophils # (Auto) 4.8 10 ^3/uL (1.6-8.6) Lymphocytes # (Auto) 1.6 10 ^3/uL (0.4-5.4) Monocytes # (Auto) 0.8 10 ^3/uL (0-1.3) Eosinophils # (Auto) 0.1 10 ^3/uL (0-0.8) Basophils # (Auto) 0 10 ^3/uL (0-0.2) Nucleated Red Blood Cells 0.1 % Sodium Level 136 mmol/L (136-145) Potassium Level 3.9 mmol/L (3.5-5.1) Chloride Level 102 mmol/L (98-107) Carbon Dioxide Level 25 mmol/L (20-31) Anion Gap 9 (5-15) Blood Urea Nitrogen 7 mg/dL (9-23) Creatinine 0.73 mg/dL (0.700-1.30) Glomerular Filtration Rate Calc 111 mL/min (>90) BUN/Creatinine Ratio 9.6 (10.0-20.0) Serum Glucose 226 mg/dL (74-106) Calcium Level 8.3 mg/dL (8.7-10.4) Random Vancomycin Level 4.4 ug/mL (5-10) Stool Occult Blood Negative (Negative) Stool Occult Blood Sample #2 (Negative) Stool Occult Blood Sample #3 (Negative) Total Bilirubin 0.5 mg/dL (0.2-1.0) Aspartate Amino Transferase (AST) 35 U/L (13-40) Alanine Aminotransferase (ALT) 40 U/L (7-40) Alkaline Phosphatase 73 U/L (46-116) Total Protein 6.3 g/dL (5.7-8.2) Albumin 3.2 g/dL (3.2-4.8) Test 07/10/25 23:00 07/10/25 10:09 Urine Color Yellow (Yellow) Urine Clarity Turbid (Clear) Urine pH 6.5 (5.0-9.0) Urine Specific [place] 1.039 (1.001-1.035) Urine Protein 1+ (Negative) Urine Ketones 2+ (Negative) Urine Blood Negative /uL (Negative) Urine Nitrite Negative (Negative) Urine Bilirubin Negative (Negative) Urine Urobilinogen 6 mg/dL (Negative) Urine Leukocyte Esterase Negative /uL (Negative) Urine RBC 1 /hpf (0 - 3) Urine Microscopic WBC 11 /HPF (0-3) Urine Squamous Epithelial Cells Few /hpf (<5) Urine Bacteria None seen /hpf (None Seen) Urine Hyaline Casts Few /lpf (0 - 2) Urine Mucus Few (None Seen) Urine Yeast (Budding) Moderate /hpf (None Seen) Urine Glucose 4+ mg/dL (Normal) Hemoglobin A1c 13.6 % A1C (<5.7) Lactic Acid Level 1.9 mmol/L (0.4-2.0) Other Laboratory Tests 07/12/25 05:02 Brief Hx & Hospital Course: Lisseth Turner 50-year-old male with type 2 diabetes, hypertension, and morbid obesity presents with uncontrolled DM only on oral metformin, left lower quadrant cellulitis with skin ulcer, intraabdominal secondary sources of infection ruled out. Discharged with oral antibiotics and new Insulin sc. At discharge follow up with PCP and Endocrinology. Conditions treated in hospital: # Abdominal Superficial abdominal and skin ulceration, continued wound care. # Right lower abdominal cellulitis around Vancomycin and Cefepime s/p 2 days IV # Ruled out systemic infection # intertrigo on nystatin # Diabetes type 2, uncontrolled, HbA1C 13.6, previously was on Metformin 500 bid. # Hypertensive heart disease/diastolic dysfunction # Grade III obesity # H/o Nicotine abuse Discharge planning and discussion needed 29 minutes. Case discussed with Dr. Tucker and team. Operations or Procedures [place] [address] Ph: [phone] DIAGNOSTIC IMAGING Diagnostic Imaging Report : [id number] Signed PATIENT: LISSETH TURNER ACCT: [id number] UNIT: [id number] : 1975 LOC: [facility] ROOM / BED: [address] [place] [address] AGE / SEX: 50 / M ADM STATUS: ADM IN SERVICE 1124 ORDERING PHYSICIAN: MARCIA HINOJOSA RESIDENT PROCEDURE(s): ABPEL - CT AB PELVIS W WO CON-IV ONLY REASON: abdominal superficial collection vs underlying mass ORDER NUMBER(s): [id number], ACCESSION NUMBER(s): [id number] EXAM: CT CT AB PELVIS W WO CON-IV ONLY History: abdominal superficial collection vs underlying mass COMPARISON: None TECHNIQUE: Following IV administration of 100 mL omnipaque [address] of the abdomen and pelvis was performed from lung bases to pubic symphysis. Intravenous contrast was administered during this examination. Portal venous imaging was obtained. Axial, coronal and sagittal multiplanar reformats were performed by the technologist on a separate workstation. Radiation Dose : 1. Abdomen/Pelvis: CTDIvol 25.6mGy, DLP 3022.58 mGy*cm. FINDINGS: Lung Bases: No acute or significant lung base finding. Normal heart size. No pleural or pericardial effusion. Liver: The liver is normal in size. No focal lesions. Normal hepatic vascular enhancement. Gallbladder and Biliary Tree: Unremarkable Spleen: Unremarkable Pancreas: The pancreas is normal in appearance without focal lesions or abnormal enhancement. Adrenal Glands: Unremarkable Kidneys: No hydronephrosis. Bladder: Unremarkable Bowel: The stomach is grossly normal in appearance. Small bowel and colon are normal in caliber and distribution. The appendix is not visualized; however, no secondary findings of acute appendicitis identified. Ascites: Absent Lymphadenopathy: No mesenteric, retroperitoneal or periportal lymphadenopathy. Abdominal Wall and Mesentery: Slight swelling of the lower right lateral chest wall. Vasculature: The visualized abdominal aorta is normal in size and caliber. Abdominal and pelvic vessels demonstrate normal enhancement. Pelvic Organs: Unremarkable Musculoskeletal: No aggressive focal bony lesions, acute fractures or dislocation. IMPRESSION: 1. No acute abdominal or pelvic finding. Radiation optimization: All CT scans at this facility use at least one of these dose optimization techniques: automated exposure control mA and/or kV adjustment per patient size (includes targeted exams where dose is matched to clinical indication) or iterative reconstruction. ATED BY: CARY HERNANDEZ MD DICTATED DATE/TIME: 07/11/251403 SIGNED BY: CARY HERNANDEZ MD SIGNED DATE/TIME: 07/11/25 140 CC: Condition at Discharge: Guarded Final Diagnosis/Problems List # Abdominal Superficial abdominal and skin ulceration, continued wound care. # Right lower abdominal cellulitis around Vancomycin and Cefepime s/p 2 days IV # Ruled out systemic infection # intertrigo on nystatin # Diabetes type 2, uncontrolled, HbA1C 13.6, previously was on Metformin 500 bid. # Hypertensive heart disease/diastolic dysfunction # Grade III obesity # H/o Nicotine abuse Discharge Disposition: Home Discharge Instruct/Medications Diet: Consistent carbohydrate, Cardiac 2g Na,low cholest Activity: No Restrictions, As Tolerated Follow Up/Referral: PCP and Establish care with Endocrinology. [facility] clinic follow up on 07/15/2025 am. Medications: as per EHR Scheduled Doxycycline (Monohydrate) (Doxycycline), 100 MG PO BID Insulin Glargine (Lantus), 100 UNIT SC HS Levofloxacin Hemihydrate (Levofloxacin), 500 MG PO DAILY Lisinopril (Lisinopril), 1 TAB PO DAILY, (Reported) Metformin HCl (Metformin Hydrochloride), 1,000 MG PO BID Discontinued Medications Metformin Hydrochloride (Metformin Hcl), 1 TAB PO BID, (Reported) Durable Medical Equipment Blood Glucose Monitoring Suppl (D-Care Glucometer Kit/Glu W/Device), KIT XX, (DME) Insulin Syringe/Needle U-100 (Aq Insulin Syringe/1Ml/31 31G X 5/16" 1 ml), MIS XX, (DME) Isopropyl Alcohol (Easy Touch Alcohol Prep P), % XX, (DME) Lancets (Freestyle Lancets), EA XX, (DME) Discharge Statement: "Patient was advised to return to the ER or call 911 if any headaches, dizziness, shortness of breath, chest pain, abdominal pain, bleeding, fevers, or worsening of medical condition. Patient was counseled about treatment plan, medications, possible side effects, patientverbalized understanding. All questions were answered to the best of my ability. This discharge took greater then 30 minutes in planning, reviewing documentation, counseling the patient, and discussing with other team members." ASSESSMENT ASSESSMENT Assessment Visit Coding STANDARD RES Billing Provider: ROBB TUCKER MD Date of Service if different f: Jul 12, 2025 Common Visit Codes: 69884-ZAW/OBS DISCH DAY >30min MARCIA HINOJOSA RESIDENT Jul 12, 2025 16:59 ROBB TUCKER MD Jul 14, 2025 21:25
[2025-07-12] MEDS ORDERED: INSLANTI SC (17:02)
[2025-07-12] MEDS ORDERED: METF-929 PO (17:02)
[2025-07-12] MEDS ORDERED: ALCOPAD58 XX (17:05)
[2025-07-12] MEDS ORDERED: BLOO1KIT60 XX (17:05)
[2025-07-12] MEDS ORDERED: INSU-1640 XX (17:05)
[2025-07-12] MEDS ORDERED: LANC-347 XX (17:05)
[2025-07-12] MEDS ORDERED: LEVO500T91 PO (17:10)
[2025-07-12] MEDS ORDERED: DOXY100C79 PO (17:10)
== END 2025-07-12 19:00 | disposition home or self-care (01) | DRG 603 ==
LOC: EDBD 09:31 → ER 09:31 → OVERFLOW 13:15 → WEST WING 18:03
PROVIDERS: ADMIT Internal Medicine Geriatric Medicine; ATTEND Internal Medicine Geriatric Medicine
DX: L03.311 Cellulitis of abdominal wall (principal); S31.103A Unspecified open wound of abdominal wall, right lower quadrant without penetration into peritoneal cavity, initial encounter; Z68.43 Body mass index [BMI] 50.0-59.9, adult; E11.65 Type 2 diabetes mellitus with hyperglycemia; I11.9 Hypertensive heart disease without heart failure; E66.01 Morbid (severe) obesity due to excess calories; Z87.891 Personal history of nicotine dependence; L30.4 Erythema intertrigo; L98.439 Non-pressure chronic ulcer of abdomen with unspecified severity; X58.XXXA Exposure to other specified factors, initial encounter; Y93.89 Activity, other specified; Y92.89 Other specified places as the place of occurrence of the external cause; Y99.8 Other external cause status
CPT/HCPCS: 36415; 71045; 74178; 80048; 80053; 80202; 81001; 82270; 82962; 83036; 83605; 85025; 87040; 87077; 87081; 87186; 87205; 96365; G0378; J0692; J1815; J2543; J3490